=== PATIENT | male | born 1980 | race African-American/Black ===

== ENCOUNTER 2023-10-22 16:39 | Emergency (ER) | payer OTHER, MEDICARE ==
[2023-10-22] MEDS ORDERED: Ketorolac Tromethamine 30 MG (1 mL) VIAL ONE (17:25)
== END 2023-10-22 18:43 | disposition home or self-care (01) ==
LOC: ERS 16:39
DX: M79.604 Pain in right leg (principal)
CPT/HCPCS: 96372; J1885